=== PATIENT | female | born 1930 | race African-American/Black ===

== ENCOUNTER 2019-03-02 09:02 | Inpatient (IN) | payer OTHER ==
[~2019-03-02] VITALS: Ht 165.1 cm; Wt 61.2 kg
--- NOTE | ~2019-03-02 | P ---
[facility] [place] [address] PROCEDURE REPORT Name: DRE MORELOS Room #: 227-P ADM IN M.R.#: [id number] Admission: 03/02/19 ������������������ Attend Phys: Chiquis Tirado Discharge: ������������������ Date of : [birth year] Report #: [id number] THIS REPORT FOR: //name// CC: ALYCIA physician/PCP Chiquis Tirado MD DATE OF SERVICE: 03/04/2019 PROCEDURE: Forceps biopsy polypectomy. The patient of Dr. Tirado. INDICATION FOR PROCEDURE: Evaluate for possible sources of anemia. Informed consent for this procedure was obtained prior to the administration of any medication. The risks of the procedure, which include bleeding, perforation, infection, complications of sedation and the possibility I could miss something have been explained to the patient and she has indicated her consent by signing. Anesthesia kindly provided sedation for this procedure. DESCRIPTION OF PROCEDURE: With the patient in left lateral decubitus position, a digital rectal exam was performed and no abnormalities were palpated. Then, the Olympus colonoscope was introduced through the anal sphincter and advanced under direct visualization to the terminal ileum. Findings are noted on withdrawal of the scope. The visualized terminal ileum appears normal. Cecum, normal mucosa. Ascending colon, normal mucosa. Hepatic flexure, normal mucosa. Transverse colon, normal mucosa. Splenic flexure, normal mucosa. Descending colon, in the descending colon, there is a 4-mm sessile polyp removed in toto with the regular biopsy forceps and sent to pathology lab. Good hemostasis was noted after that polypectomy. In the distal transverse colon, there are a few uncomplicated diverticula. Sigmoid colon, multiple uncomplicated diverticula are noted in the sigmoid colon. Rectum, normal mucosa. Retroflex view did not reveal any further abnormalities. The scope was withdrawn. The patient went to the recovery area in stable condition. She tolerated the procedure well. IMPRESSION: 1. Uncomplicated left-sided diverticulosis. 2. Descending colon polyp, size 5 mm or less removed as above. RECOMMENDATIONS: To await the path report. [address] [address] PROCEDURE REPORT Name: DRE MORELOS Room #: 227-P [facility] IN ..#: [id number] Admission: 03/02/19 ������������������ Attend Phys: Chiquis Tirado Discharge: ������������������ Date of : [birth year] Report #: [id number] Thank you very much once again for allowing me to participate in her care. ��������������������������������������������� ���������������������������������������� By: ��������������������������������������������� 1355 0522 Mei Fox, /nt
[2019-03-02 09:16] VITALS: BP 125/73
[2019-03-02] MEDS ORDERED: XARELTO10 MG PO (10:48)
[2019-03-02] MEDS ORDERED: LASIX 20 MG TAB20 MG PO (10:48)
[2019-03-02] MEDS ORDERED: TYLENOL325 MG PO (10:48)
[2019-03-02 12:09] LABS: ABSOLUTE NEUTROPHILS 3.8 thou/uL (1.4-8.2); BASOPHILS 0.8 % (0.0-2.0); EOSINOPHILS 1.4 % (0.0-3.0); HEMATOCRIT 33.8 % (37.0-47.0); HEMOGLOBIN 11.1 gm/dL (12.0-15.0); LYMPHOCYTES 25.2 % (24.0-44.0); MCH 28.7 pg (26.0-34.0); MCHC 32.8 g/dL (28.0-37.0); MCV 87.4 fL (80.0-100.0); MONOCYTES 5.9 % (1.0-8.0); PLATELET COUNT 199 thou/uL (150-400); POLYS 66.7 % (36.0-66.0); RBC 3.86 mil/uL (4.20-5.00); RDW 13.8 % (10.5-14.5); WBC 5.7 thou/uL (4.0-11.0)
[2019-03-02 12:22] LABS: APTT 28.5 Seconds (24.5-32.8); INR 1.1; PROTIME 11.4 Seconds (9.3-11.4)
[2019-03-02 12:25] LABS: ANION GAP 10 mmol/L (7-16); BUN 15 mg/dL (7-18); CHLORIDE 107 mmol/L (98-107); CO2 28 mmol/L (21-32); CREATININE 0.6 mg/dL (0.6-1.0); GLUCOSE 109 mg/dL (74-106); POTASSIUM 3.9 mmol/L (3.5-5.1); SODIUM 145 mmol/L (136-145)
[2019-03-02 12:35] LABS: ALBUMIN 3.9 g/dL (3.4-5.0); DIRECT BILIRUBIN 0.1 mg/dL (<0.1-0.3); SGOT 24 U/L (15-37); SGPT 22 U/L (30-65); TOTAL BILIRUBIN 0.5 mg/dL (<0.1-1.0); TOTAL PROTEIN 8.5 g/dL (6.4-8.2); TROPONIN-I <0.06 ng/mL (<0.06)
--- NOTE | 2019-03-02 14:14 | EKG ---
[address] [place] [address] ELECTROCARDIOGRAM REPORT Name: DRE MORELOS Room #: 170-7 ADM IN M.R.#: [id number] ������������������ Admission: 03/02/19 ������������������ Attend Phys: Chiquis Tirado Discharge: ������������������ Date of : [birth year] Report #: [id number] ����������������������������������������������������������������� [id number] THIS REPORT FOR: //name// [facility] ED Test Date: 2019-03-02 Test Time: 11:41:53 Pat Name: DRE MORELOS Department: Room: 170 Gender: F Human Resources Supervisor: PABLO : 1930 Requested By: James Wong Order Number: [id number] MD: Pravin Gee Measurements Intervals [place] Rate: 94 P: 53 TX: 139 QRS: -18 QRSD: 84 T: 52 QT: 356 QTc: 446 Interpretive Statements Sinus rhythm Probable left atrial enlargement Borderline left axis deviation Abnormal R-wave progression, early transition No previous ECG available for comparison Electronically Signed On 03-02-2019 14:14:24 CDT by Pravin Gee [email or web address] ��������������������������������������������� <ELECTRONICALLY SIGNED> ���������������������������������������� By: Pravin Gee MD ��������������������������������������������� 03/02/19 1414 1141 1141 Pravin Gee MD /AALIYAH
[2019-03-02 15:05] VITALS: BP 137/74
[2019-03-02 15:14] VITALS: BP 145/107
[2019-03-02 15:30] VITALS: BP 139/55
--- NOTE | 2019-03-02 17:50 | NUR ---
PT WAS AN ADMIT FOR SHE SLIPED AT HER [facility] AND LEFT HIP PAIN AND LEFT KNEE PAIN. PT UP IN CHAIR WITH BED ALARM ON. PT HAS A HISTORY OF DEMENTIA AND IS FORGETFULL CAN AMBULATE WITH WALKER X1 ASSSIST. ON ROOM AIR LUNGS ARE CLEAR. DAUGHTER WAS AT BEDSIDE TODAY. FALL SOCKS ON PT FOR SAFETY. INSTRUCTED ON USE OF CALL LIGHT. ABDOMEN IS SOFT ON CLEAR LIQUIDS NOW AND THEN NPO FOR EGD IN AM. WILL CONTINUE TO MONITOR AND ASSESS PER NURSING.
[2019-03-02 18:22] LABS: HEMATOCRIT 29.8 % (37.0-47.0); HEMOGLOBIN 9.8 gm/dL (12.0-15.0)
[2019-03-02 20:00] VITALS: BP 126/78
--- NOTE | 2019-03-03 02:16 | NUR ---
AWAKE TONIGHT, RESTING SITTING UP AT TIMES. SHE IS FUSSY AT TIMES. NPO AFTER MIDNIGHT, FOR PROCEDURE THIS AM. CONTINUES ON IV FLUIDS. COMPLAINS OF SOME NAUSEA TONIGHT, GAVE ONE DOSE OF ZOFRAN IV. PROGRESSING TOWARD DISCHARGE GOALS. CAREPLAN REVIEWED.
[2019-03-03 04:30] VITALS: BP 119/59
[2019-03-03 07:20] LABS: HEMATOCRIT 28.2 % (37.0-47.0); HEMOGLOBIN 9.3 gm/dL (12.0-15.0); MCH 28.9 pg (26.0-34.0); MCHC 32.8 g/dL (28.0-37.0); MCV 88.1 fL (80.0-100.0); RBC 3.21 mil/uL (4.20-5.00); RDW 13.4 % (10.5-14.5)
[2019-03-03 08:07] VITALS: BP 108/68
--- NOTE | 2019-03-03 13:40 | NUR ---
PT ALERT AND ORIENTED TIMES FOUR WITH SOMEWHAT BLUNTED AFFECT. VSS, 100%RA, SR ON TELE. PT C/O HIP PAIN PRN MEDICATIONS GIVEN WITH GOOD RELEIF. PT TOLERATES CLEAR LIQUID DIET. PT UP SITTING IN THE CHAIR FOR MOST OF THE SHIFT. FAMILY AT BEDSIDE. PT SLOWLY PROGRESSING TOWRADS POC GOALS.
--- NOTE | 2019-03-03 15:12 | NUR ---
edvin sent new referral to Dottie/david Brown date unknown at this time. EDVIN contacted Stephanie to let her know of incoming referral.
[2019-03-03 15:21] VITALS: BP 118/58
--- NOTE | 2019-03-03 15:26 | NUR ---
INITIAL ASSESSMENT: SW received high risk nursing referral due to pt being admitted from a nursing facility. SW reviewed chart and spoke with nursing and attending physician. Pt was admitted from [facility] due to GI bleed. Pt had EGD today. Pt's diet being advanced to clear liquids. DARRYL met with pt's dtr at bedside. Introduced role of SW. Prior to admission, pt was ambulating with a walker. Pt is in the on site wastewater systems technician care unit at [facility]. systems requirements planner to fax clinical updates to [place] post-acute liaison for review. Plan is for pt to return to [facility] when medically stable. SW is following to assist as needed with discharge planning.
--- NOTE | 2019-03-03 19:54 | NUR ---
PATIENT TRANSFERRED FROM [facility], REPORT FROM JAY/KAMILLE. PATIENT ALERT AND ORIENTED X 4. PATIENT UP WITH SBA WITH WALKER. PAIENT HAS LEFT HAND IV IN PLACE. PATIENT ON CLEAR LIQUID DIET, WILL BE NPO AFTER MIDNIGHT, BOWEL PREP MIED BY JAY/RN AND PATIENT FINISHED BY AT START OF NIGHTSHIFT. PATIENT WILL HAVE COLONOSCOPY TOMORROW. PATIENT HAS 2-3+ EDEMA TO BILATERAL LOWER EXTREMITIES, ELEVATED WHILE UP IN RECLINER. WILL CONTINUE TO MONITOR. PATIENT HAD EGD TODAY, SHOWED HIATEL HERNIA,GASTRISTIS, NO BLEEDING.
[2019-03-03 20:33] VITALS: BP 115/50
--- NOTE | 2019-03-04 02:39 | NUR ---
Assumed pt care at 1900.Pt A/OX4,up with SBA/RW to bathroom.Pt hesitating help from staff with ADLs but calls appropriately PRN.C/o pain to gladys hips,medicated with Tylenol at HS with relief reported. Pt did complete her bowel prep by 1999. Having loose bloody BMs at this time,OBS sample obtained as ordered and positive. Pt has been NPO since midnight for colonoscopy in AM.VSS.Up at this time d/t frequent trips to the bathroom.Will continue to monitor pt.
[2019-03-04 03:22] VITALS: BP 115/71
[2019-03-04 06:16] LABS: HEMATOCRIT 26.8 % (37.0-47.0); MCH 29.2 pg (26.0-34.0); MCHC 33.5 g/dL (28.0-37.0); MCV 87.2 fL (80.0-100.0); RBC 3.07 mil/uL (4.20-5.00); RDW 13.1 % (10.5-14.5); WBC 5.2 thou/uL (4.0-11.0)
[2019-03-04 09:00] VITALS: BP 123/63
--- NOTE | 2019-03-04 12:04 | NUR ---
SW reviewed chart and spoke with nursing and attending physician. Pt was transferred to [facility] from . Pt scheduled to have colonoscopy today. Discharge back to [facility] is anticipated for tomorrow. tool and production planner to fax updates and notify [place] post-acute liaison. DARRYL is following to assist as needed with discharge planning.
--- NOTE | 2019-03-04 17:06 | PATH ---
[facility] [place] [address] PATHOLOGY RPT PROCEDURE Name: DRE MORELOS Room #: 227-P ADM IN M.R.#: [id number] ������������������ Admission: 03/02/19 ������������������ Date of : [birth year] Discharge: Report #: [id number] Path Case #: [id number] [facility] Accession Number: [id number] . 01 Material submitted: . stomach - GASTRITIS BIOPSY R/O H PYLORI . 01 Clinical history: . Pre-OP DX: Melena, anemia Post-OP DX: Schatzki's ring, gastritis, hiatal hernia . 02 Diagnosis: Gastric mucosa, gastritis, rule out H. pylori, endoscopic biopsy: - Mild reactive gastropathy. - Negative for intestinal metaplasia or atrophy. - Negative for Helicobacter pylori (properly controlled immunohistochemical stain performed). (IUV:darrell; 03/04/2019) MBKrystal/03/04/2019 . 02 Electronically signed: . Dalia Moore MD, Pathologist NPI- [id number] . 01 Gross description: . Received in formalin labeled "Dre Morelos, gastritis, rule out H. pylori," are 2 segments of curtis soft tissue measuring 0.7 x 0.3 x 0.2 cm in aggregate dimensions and ranging from 0.3 to 0.4 cm in maximum dimension. The specimen is submitted entirely in cassette A1. (TSD; 03/03/2019) TOB/TOB . 02 Pathologist provided ICD-10: K31.9 . 02 CPT . 129567, X64994 Specimen Comment: A courtesy copy of this report has been sent to Specimen Comment: [phone], . Specimen Comment: Report sent to / DR CASTRO Performed at: [address] [id number] MD Reddy Olmedo MD Phone: [phone] Performed at: [address] [id number] [address] [address] PATHOLOGY RPT PROCEDURE Name: DRE MORELOS Room #: 227-P [facility] IN M.R.#: [id number] ������������������ Admission: 03/02/19 ������������������ Date of : [birth year] Discharge: Report #: [id number] Path Case #: [id number] MD Dalia Moore MD Phone: [phone]
--- NOTE | 2019-03-04 20:08 | NUR ---
ASSUMED CARE OF PATIENT AT 0715, PATIENT ALERT AND ORIENTED, PATIENT UP WITH SBA WITH WALKER TO BATHROOM. PATIENT NPO FOR COLONOSCOPY TODAY, COLONOSCOPY DONE, UNABLE TO NOTED WHERE BLEEDING COMING FROM, REPORT RECEIVED PATIENT WILL NEED PILL CAMERA TO LOCATE BLEED. BLOOD STILL NOTED IN STOOLS, 2 STOOLS THIS SHIFT, VOIDING W/O DIFICULTY. PATIENT C/O DIZZINESS, REPORT TO DR CASTRO. PATIENT HAS LEFT HAND IV IN PLACE, REMAINS PATENT. PATIENT SLEEPS IN RECLINER. PAIN MEDS GIVEN AFTER PROCEDURE IN OR. WILL CONTINUE TO MONITOR.
[2019-03-04 21:33] VITALS: BP 125/60
--- NOTE | 2019-03-05 00:17 | NUR ---
Assumed pt care at 1900. Pt A/OX4,VSS. C/o generalized ache to gladys hips medicated with Tylenol with some relief reported denies need for more pain meds. Up with SBA/RW,hesitant for staff to help with ADLs,reminded she needs to call when getting up.Bed/chair alarm on. Pt did sleep on the bed tonight for a while but states she doesn't feel comfortable on it and back on the chair at this time. Needs a lot of encouragement to keep feet elevated,has BLE pitting edema 2-3+. Pt denies any dizzyness/lightheadedness on assessment referring to it happening yesterday only. Resting on the chair right now,no distress noted.Will continue to monitor pt.
[2019-03-05 06:18] LABS: HEMATOCRIT 28.9 % (37.0-47.0); HEMOGLOBIN 9.6 gm/dL (12.0-15.0); MCHC 33.2 g/dL (28.0-37.0); MCV 87.6 fL (80.0-100.0); RBC 3.3 mil/uL (4.20-5.00); RDW 13.2 % (10.5-14.5); WBC 5.2 thou/uL (4.0-11.0)
[2019-03-05 08:00] VITALS: BP 151/87
[2019-03-05] MEDS ORDERED: MIRALAX17 GM PO (11:40)
--- NOTE | 2019-03-05 12:27 | NUR ---
PATIENT CARE WAS ASSUMED AT 0715.PT IS ALERT AND ORIENTED X4.PATIENT IS ABLE TO GET UP WITH X1 ASSIST WITH WALKER.IV IS SALINE LOCKED.PATIENT PREFERS THE CHAIR.PT WILL CALL WHEN SHE NEEDS ASSISTANCE.CALL LIGHT,PHONE, AND PERSONAL BELONGINGS ARE WITHIN REACH.
--- NOTE | 2019-03-05 12:53 | NUR ---
DISCHARGE NOTE: DARRYL reviewed chart and spoke with nursing and attending physician. Pt is medically stable for discharge back to [facility] today. DARRYL faxed discharge orders/summary to [place] post-acute liaison. Awaiting transportation time. Chart copy ordered. DARRYL is following to finalize discharge.
--- NOTE | 2019-03-05 15:05 | PATH ---
[facility] [address] [place] [address] PATHOLOGY RPT PROCEDURE Name: DRE MORELOS Room #: 227-P ADM IN M.R.#: [id number] ������������������ Admission: 03/02/19 ������������������ Date of : [birth year] Discharge: Report #: [id number] Path Case #: [id number] [facility] Accession Number: [id number] . 01 Material submitted: . colon - BX POLYP AT DESCENDING COLON. Modifiers: descending . 01 Clinical history: . Pre-OP DX: GI bleed, abdominal pain Post-OP DX: Colon polyp, diverticulosis . 02 Diagnosis: Polyp, at descending colon, endoscopic biopsy: - Compatible with an inflamed hyperplastic polyp. - Negative for dysplasia. (IUV:pit 03/05/2019) QTP/03/05/2019 . 02 Electronically signed: . Dalia Moore MD, Pathologist NPI- [id number] . 01 Gross description: . Received in formalin labeled "Dre Morelos, polyp at descending colon," is a single segment of curtis soft tissue measuring 0.5 cm in maximum dimension. The specimen is entirely submitted in cassette A1. (TSD; 03/04/2019) TOB/TOB . 02 Pathologist provided ICD-10: K63.5 . 02 CPT . 841035 Specimen Comment: A courtesy copy of this report has been sent to Specimen Comment: [phone], . Specimen Comment: Report sent to / DR CASTRO Performed at: [address], [place], [place] [id number] MD Reddy Olmedo MD Phone: [phone] Performed at: [address] [id number] MD Dalia Moore MD Phone: [phone]
--- NOTE | 2019-03-05 16:40 | NUR ---
PATIENT WAS DISCHARGED TO GO TO HER ASSISTED FACILITY.PATIENT'S IV WAS TAKEN OUT GAUZE WAS PLACED.TRANSPORT WILL TAKE PATIENT WITH PAPERWORK.PT HAS ALL OF HER BELONGINGS, INCLUDING HER PERSONAL WALKER.
== END 2019-03-05 16:43 | DRG 378 ==
LOC: ER 09:02 → 3W 12:49 → EROBS 12:49 → 3W 15:16 → ENTRNSPT 03-03 18:16 → SICU 03-03 18:24
PROVIDERS: Emergency Medicine; ADMIT Hospitalist
PROC: 0DB68ZX Excision of Stomach, Via Natural or Artificial Opening Endoscopic, Diagnostic (ICD-10-PCS; principal; 2019-03-03)
PROC: 0DBM8ZZ Excision of Descending Colon, Via Natural or Artificial Opening Endoscopic (ICD-10-PCS; 2019-03-04)
DX: K29.61 Other gastritis with bleeding (principal); D62 Acute posthemorrhagic anemia; K22.11 Ulcer of esophagus with bleeding; M19.90 Unspecified osteoarthritis, unspecified site; K63.5 Polyp of colon; K59.00 Constipation, unspecified; Z96.649 Presence of unspecified artificial hip joint; F03.90 Unspecified dementia, unspecified severity, without behavioral disturbance, psychotic disturbance, mood disturbance, and anxiety; K57.31 Diverticulosis of large intestine without perforation or abscess with bleeding; K44.9 Diaphragmatic hernia without obstruction or gangrene; M62.84 Sarcopenia; K22.2 Esophageal obstruction; K31.9 Disease of stomach and duodenum, unspecified; Z86.718 Personal history of other venous thrombosis and embolism; Z88.8 Allergy status to other drugs, medicaments and biological substances
CPT/HCPCS: 10879; 15001; 15002; 62110; 62900; 70005